=== PATIENT | female | born 1980 | race Caucasian/White ===

== ENCOUNTER 2016-12-23 10:49 | Inpatient (IN) ==
[2016-12-23] MEDS ORDERED: 0.9 % Sodium Chloride 1,000 ML IVC ONE (11:37)
[2016-12-23] MEDS ORDERED: *HR* HYDROmorphone (PF) 1 MG/ML SYRINGE IVP ONE ×2 (11:37→14:47)
[2016-12-23] MEDS ORDERED: Ondansetron ODT 4 MG TAB.RAPDIS SL ONE (11:37)
[2016-12-23 11:55] LABS: Hematocrit 40.9 % (35.3-44.9); Hemoglobin 13.7 g/dL (11.5-15.4); Mean Corpuscular HGB Conc 33.5 g/dL (31.6-35.5); Mean Corpuscular Hemoglobin 32.1 pg (28.0-33.3); Mean Corpuscular Volume 95.8 fL (83.0-100.0); Mean Platelet Volume 8.9 fL (9.4-12.4); Platelet Count 282 K/mcL (140-400); Red Blood Count 4.27 M/mcL (3.82-4.97); Red Cell Distribution Width 11.9 % (11.5-14.5)
[2016-12-23 12:10] LABS: Alanine Aminotransferase 698 Units/L (0-55); Albumin 3.7 g/dL (3.5-5.0); Albumin/Globulin Ratio 1.3 (1.1-2.2); Alkaline Phosphatase 122 Units/L (38-126); Aspartate Amino Transferase 827 Units/L (5-34); BUN/Creatinine Ratio 16 (6-26); Bilirubin,Direct 1.5 mg/dL (0.0-0.5); Bilirubin,Indirect 1.4 mg/dL (0.0-1.2); Blood Urea Nitrogen 10 mg/dL (7-20); Carbon Dioxide 27 mEq/L (19-29); Chloride 105 mEq/L (98-109); Globulin 2.9 g/dL (2.4-3.5); Glucose 75 mg/dL (70-99); Lipase 18 Units/L (8-78); Osmolality,Calculated 288 (280-300); Potassium 3.7 mEq/L (3.5-4.5); Sodium 140 mEq/L (136-145); Total Protein 6.6 g/dL (6.0-8.3); eGFR For African Americans > 60 (> 60); eGFR For Non-African Americans > 60 (> 60)
[2016-12-23 12:12] LABS: Bilirubin,Total 2.9 mg/dL (0.2-1.2)
--- NOTE | 2016-12-23 12:38 | Emergency Department Note ---
Disposition Clinical Impression: Abdominal pain Qualifiers: Abdominal location: generalized Qualified Code(s): R10.84 - Generalized abdominal pain Intractable vomiting Qualifiers: Vomiting type: unspecified Nausea presence: with nausea Qualified Code(s): R11.2 - Nausea with vomiting, unspecified Disposition: Admitted As Inpatient Condition: Fair Referrals: Fifi Gallego CNP [Primary Care Provider] - Forms: ED Satisfaction Letter Nausea/Vomiting/Diarrhea HPI - General Chief complaint: ED Nausea/Vomiting/Diarrhea Stated complaint: gall bladder removed 2 days ago, vomiting Time Seen by Provider: 12/23/16 11:33 Source: patient Limitations: no limitations Nursing Notes Reviewed: Yes Vital Signs Reviewed: Yes - History of Present Illness HPI Narrative: The patient did have a cholecystectomy 2 days ago presents today with pain which was present yesterday and is improved compared to yesterday but mostly the reason that she came is because she has vomiting and she has vomited 12 times today and intermittent. No blood in the vomit. No associated fever, confusion. No bowel movement in 4 days. No blood in the urine. She has not been able to keep down her pain medication. Her abdominal pain is sharp and constant. Social history: Smoker, no alcohol or drugs - Related Data Home Medications Medication Instructions Recorded Confirmed Ondansetron HCl [Zofran] 4 mg PO Q6H PRN 12/23/16 12/23/16 OxyCODONE/APAP 5/325 [Percocet 1 tab PO Q6HR PRN 12/23/16 12/23/16 5/325 MG] Polyethylene Glycol 3350 [MiraLAX] 17 gm PO DAILY PRN 12/23/16 12/23/16 Allergies Allergy/AdvReac Type Severity Reaction Status Date / Time No Known Allergies Allergy Verified 12/23/16 10:57 Review of Systems: Constitutional: No fever Vision: No blurred vision ENT: No rhinorrhea Respiratory: No cough Allergic: No allergies : No blood in urine GI: No blood in stool Hematologic: No bruising Dermatologic: No skin rash Musculoskeletal: No pain in the extremities Neuro: No numbness of the extremities Past Medical History - Past Medical History Medical history: Reports: no medical history Surgical history: Reports: no surgical history Psychiatric history: Reports: no psych history 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 EYES: PERRL, no scleral icterus. NOSE: The nose is normal in appearance without rhinorrhea RESP: Normal chest excursion with respiration; breath sounds clear and equal bilaterally; no wheezes, rhonchi, or rales CARD: Regular rhythm, without murmurs, rub or gallop ABD: Non-distended; surgical wounds are clean, dry, intact, no erythema or signs of infection, does not generalized pain mostly pain in the right upper quadrant which is moderate in severity, entire abdomen is soft without rigidity , rebound or guarding SKIN: Normal for age and race; warm and dry; no apparent lesions - General Limitations: no limitations General appearance: alert, in no apparent distress Course Vital Signs Temperature 98.0 F 12/23/16 10:53 Pulse Rate 68 12/23/16 10:53 Respiratory Rate 16 12/23/16 10:53 Blood Pressure 136/88 12/23/16 10:53 O2 Sat by Pulse Oximetry 99 12/23/16 10:53 Temperature 98.0 F 12/23/16 10:53 Pulse Rate 62 12/23/16 13:48 Respiratory Rate 16 12/23/16 13:48 Blood Pressure 146/76 12/23/16 13:48 O2 Sat by Pulse Oximetry 97 12/23/16 13:48 Oxygen Delivery Oxygen Delivery Room Air Nausea/Vomiting/Diarrhea - [facility] Narrative Medical decision making narrative: I did review the patient's labs and am concerned about a retained stone. We will discuss further with surgery, the patient did receive IV fluids, IV Dilaudid and Zofran 1238 - Lab Data Result diagrams: 12/23/16 11:46 12/23/16 11:46 Lab Results 12/23/16 12/23/16 Range/Units 11:46 11:46 WBC 6.6 (4.3-11.1) K/mcL RBC 4.27 (3.82-4.97) M/mcL Hgb 13.7 (11.5-15.4) g/dL Hct 40.9 (35.3-44.9) % MCV 95.8 (83.0-100.0) fL MCH 32.1 (28.0-33.3) pg MCHC 33.5 (31.6-35.5) g/dL RDW 11.9 (11.5-14.5) % Plt Count 282 (140-400) K/mcL MPV 8.9 L (9.4-12.4) fL Sodium 140 (136-145) mEq/L Potassium 3.7 (3.5-4.5) mEq/L Chloride 105 (98-109) mEq/L Carbon Dioxide 27 (19-29) mEq/L BUN 10 (7-20) mg/dL Creatinine 0.64 (0.57-1.11) mg/dL Est GFR ( Amer) > 60 (> 60) Est GFR (Non-Af Amer) > 60 (> 60) BUN/Creatinine Ratio 16 (6-26) Glucose 75 (70-99) mg/dL Calculated Osmolality 288 (280-300) Calcium 9.0 (8.6-10.8) mg/dL Total Bilirubin 2.9 H D (0.2-1.2) mg/dL Direct Bilirubin 1.5 H (0.0-0.5) mg/dL Indirect Bilirubin 1.4 H (0.0-1.2) mg/dL AST 827 H (5-34) Units/L ALT 698 H (0-55) Units/L Alkaline Phosphatase 122 (38-126) Units/L Serum Total Protein 6.6 (6.0-8.3) g/dL Albumin 3.7 (3.5-5.0) g/dL Globulin 2.9 (2.4-3.5) g/dL Albumin/Globulin Ratio 1.3 (1.1-2.2) Lipase 18 (8-78) Units/L
[2016-12-23] MEDS ORDERED: Ondansetron 4 MG/2 ML VIAL IVP ONE (15:08)
[2016-12-23] MEDS ORDERED: Naloxone 0.4 MG/ML INJ IVP PRN (15:17)
[2016-12-23] MEDS ORDERED: Ondansetron 4 MG/2 ML VIAL IVP PRN (15:17)
[2016-12-23] MEDS: 0.9 % Sodium Chloride 1,000 ML IVC SCH (15:29)
--- NOTE | 2016-12-23 15:35 | Internal Med History&Physical ---
Date of Encounter: 12/23/16 Time of Encounter: 15:30 Assessment and Plan (1) Abdominal pain Current visit: Yes Status: Acute Epigastric and right upper quadrant abdominal pain status post cholecystectomy [address] is concerning for stone and bile duct as there is possible mild intrahepatic biliary duct dilation versus mild periportal edema. Plan admitted to manage nausea, vomiting, pain and for ERCP ,Surgeon Dr. Mcmullen aware. Will have MRCP tonight results pending Consult to Dr. Jackman, GI for ERCP Nothing by mouth Dilaudid 1 mg every 4 hours PRN Qualifiers: Abdominal location: epigastric Qualified Code(s): R10.13 - Epigastric pain (2) Intractable vomiting Current visit: Yes Status: Acute With nausea which began this morning. Vomiting 12 episodes, reported 1 episode of hematemesis not vomiting at this time in the ED and she was given Zofran and reports that it has helped. Possible stone in bile duct causing intrahepatic biliary duct dilation. Continue treating nausea with antiemetics Zofran 4mg IV push every 8 hours PRN. Consult to Dr. Jackman Qualifiers: Vomiting type: unspecified Nausea presence: with nausea Qualified Code(s) : R11.2 - Nausea with vomiting, unspecified Internal Medicine - H&P: HPI Chief complaint: N/V x12 episodes today, dehydration, s/p lap pamela Admitted From: Home Plans for Post Hospital Care: Home History of present illness: Ms. Gautam is a 36 year old female with the only past medical history being surgical; tubal and pamela, presents today with nausea and vomiting x12 episodes. Reports one instance of hematemesis, and bile thorughout the rest of episodes. The patient is 2 days status post cholecystectomy and experiencing unremitting sharp epigastric and RUQ abdominal pain 08/10. Was seen in ED yesterday d/t pain and nausea and given dilaudid and sent home. Denies any fevers, chills, nightsweats, diarrhea. Admits to N/V, and constipation and reports she is not passing gas. Workup in ED revealed mild intrahepatic biliary duct dilation vs periportal edema, LFT's elevated at AST 827, ALT 698, total bili 2.9 direct bili1.5 and indirect bili 1.4. Past Med Surg Social Fam HX - Past Medical History Medical history: no medical history Psychiatric history: no psych history - Past Surgical History Surgical History: no surgical history - Social History Smoking Status: Current every day smoker Smokeless Tobacco Status: No Alcohol use: none Drug use: none Internal Medicine - H&P: Meds Ondansetron HCl [Zofran] 4 mg PO Q6H PRN 12/23/16 [History] OxyCODONE/APAP 5/325 [Percocet 5/325 MG] 1 tab PO Q6HR PRN 12/23/16 [History] Polyethylene Glycol 3350 [MiraLAX] 17 gm PO DAILY PRN 12/23/16 [History] 3 Allergy/AdvReac Type Severity Reaction Status Date / Time No Known Allergies Allergy Verified 12/23/16 10:57 All Systems PM: A 10-system review of systems was performed and is negative for pertinent findings except as documented above in the HPI. - Constitutional Constitutional: no chills, no excessive sweating, no fever(s), no night sweats - EENT Eyes: no change in vision, no discharge, no pain, no photophobia Ears: no ear discharge, no ear pain, no tinnitus Nose, mouth and throat: no dysphagia, no nasal discharge, no neck pain, no sore throat - Cardiovascular Cardiovascular ROS IM: no chest pain, no diaphoresis, no dyspnea, no lightheadedness, no palpitations, no syncope - Respiratory Respiratory: no cough, no dyspnea, no wheezing, no excessive phlegm production - Gastrointestinal Gastrointestinal: as per HPI, abdominal pain, coffee ground emesis, constipation , nausea, vomiting, no diarrhea, no hematemesis, no hematochezia, no melena - Genitourinary Genitourinary: no change in urinary stream, no dysuria, no flank pain, no hematuria - Musculoskeletal Musculoskeletal ROS IM: no numbness, no tingling - Integumentary Integumentary IM: no rash, no unusual bruising - Neurological Neurological ROS: no confusion, no convulsions, no focal weakness, no numbness, no tingling, no tremor(s) - Hematologic/Lymphatic Hematologic/Lymphatic: no easy bruising - Constitutional Vitals: Temp Pulse Resp BP Pulse Ox 98.0 F 62 16 138/78 97 12/23/16 10:53 12/23/16 15:06 12/23/16 15:06 12/23/16 15:06 12/23/16 15:06 General appearance: Present: cooperative, A&O X 3, no acute distress, answers questions appropriately - Head Head exam: Present: atraumatic, normocephalic - Eye Eye exam: Present: PERRL, conjuntiva pink, sclera anicteric Pupils: Present: PERRL - Neck Neck exam general surgery: Present: supple, trachea midline. Absent: lymphadenopathy - Respiratory Respiratory exam: Present: CTAB. Absent: accessory muscle use, rales, rhonchi, wheezes - Cardiovascular Cardiovascular exam: Present: RRR, +S1, +S2. Absent: diastolic murmur, gallop, rubs, systolic murmur - GI/Abdominal GI/Abdominal exam: Present: hypoactive bowel sounds, soft, tenderness ( epigastric and RUQ). Absent: distended, firm, hepatomegaly, rebound, rigid - Extremities Exam Extremities exam: Present: warm, radial pulses palpable and symmetrical. Absent : calf tenderness, cyanotic, pedal edema - Neurological Exam Neurological exam: Present: CN II-XII intact, oriented X3, no focal deficits. Absent: pronater drift, facial droop, speech deficit - Skin Skin exam: Present: dry, intact Additional comments: Multiple laproscopic incision noted to abdomen, intact, without drainage or signs of infection. Internal Med - H&P Results - Labs CBC & Chem 7: 12/23/16 11:46 12/23/16 11:46 - Diagnostic Studies CT scan - abdomen Status: image reviewed by me Additional comments: CT revealed mild periportal edema versus mild intrahepatic biliary duct dilation
[2016-12-23] MEDS ORDERED: *HR* HYDROmorphone (PF) 1 MG/ML SYRINGE IVP SCH (16:00)
[2016-12-23] MEDS ORDERED: *HR* HYDROmorphone (PF) 1 MG/ML SYRINGE IVP PRN (16:09)
[2016-12-23] MEDS: *HR* HYDROmorphone (PF) 1 MG/ML SYRINGE IVP PRN ×2 (19:07→22:49)
[2016-12-23] MEDS: Ondansetron 4 MG/2 ML VIAL IVP PRN (22:49)
[2016-12-24] MEDS: 0.9 % Sodium Chloride 1,000 ML IVC SCH ×2 (02:43→14:13)
[2016-12-24] MEDS: *HR* HYDROmorphone (PF) 1 MG/ML SYRINGE IVP PRN ×6 (02:43→23:43)
[2016-12-24 06:56] LABS: Basophils % 0.3 %; Eosinophils # 0.2 K/mcL (0.0-0.6); Eosinophils % 2.4 %; Hematocrit 37.1 % (35.3-44.9); Hemoglobin 12.3 g/dL (11.5-15.4); Immature Granulocytes % 0.3 % (0-4); Immature Platelets 2.5 % (1.1-6.1); Lymphocytes # 2.2 K/mcL (0.6-4.6); Lymphocytes % 30.8 %; Mean Corpuscular HGB Conc 33.2 g/dL (31.6-35.5); Mean Corpuscular Hemoglobin 31.6 pg (28.0-33.3); Mean Corpuscular Volume 95.4 fL (83.0-100.0); Mean Platelet Volume 9.6 fL (9.4-12.4); Monocytes # 0.6 K/mcL (0.0-1.3); Monocytes % 8.8 %; Neutrophils # 4.1 K/mcL (1.6-8.9); Platelet Count 287 K/mcL (140-400); Red Blood Count 3.89 M/mcL (3.82-4.97); Red Cell Distribution Width 11.7 % (11.5-14.5); Segmented Neutrophils % 57.4 %
[2016-12-24 07:12] LABS: Alanine Aminotransferase 454 Units/L (0-55); Albumin 3.4 g/dL (3.5-5.0); Albumin/Globulin Ratio 1.3 (1.1-2.2); Alkaline Phosphatase 177 Units/L (38-126); Aspartate Amino Transferase 270 Units/L (5-34); BUN/Creatinine Ratio 13 (6-26); Bilirubin,Total 2.9 mg/dL (0.2-1.2); Blood Urea Nitrogen 8 mg/dL (7-20); Calcium 8.7 mg/dL (8.6-10.8); Carbon Dioxide 25 mEq/L (19-29); Chloride 107 mEq/L (98-109); Globulin 2.6 g/dL (2.4-3.5); Glucose 61 mg/dL (70-99); Osmolality,Calculated 282 (280-300); Potassium 3.5 mEq/L (3.5-4.5); Sodium 138 mEq/L (136-145); eGFR For African Americans > 60 (> 60); eGFR For Non-African Americans > 60 (> 60)
[2016-12-24 07:15] LABS: BUN/Creatinine Ratio 13 (6-26); Blood Urea Nitrogen 8 mg/dL (7-20); Calcium 8.8 mg/dL (8.6-10.8); Carbon Dioxide 24 mEq/L (19-29); Chloride 107 mEq/L (98-109); Glucose 61 mg/dL (70-99); Osmolality,Calculated 284 (280-300); Potassium 3.5 mEq/L (3.5-4.5); Sodium 139 mEq/L (136-145); eGFR For African Americans > 60 (> 60); eGFR For Non-African Americans > 60 (> 60)
[2016-12-24] MEDS: Ondansetron 4 MG/2 ML VIAL IVP PRN ×3 (07:32→20:29)
--- NOTE | 2016-12-24 07:45 | Anesthesia Evaluation PreOp ---
Date of Encounter: 12/24/16 Time of Encounter: 07:43 - Past History Planned Operation: ERCP Cardiac History: Denies any Significant Hx Pulmonary History: Smoker, Pack/yr (1 ppd x 25 years) HEARING THERAPIST History: Denies Any Significant HX Other Medical History: Denies Any Significant HX Anesthesia History: No Prior Anesthetic Complications, Past Anesthesia (Facial sx, tubal , GB) : No Test: Negative (12/21/2016) Alcohol Use: none Drug use: none Medications and Allergies Ondansetron HCl [Zofran] 4 mg PO Q6H PRN 12/23/16 [History] OxyCODONE/APAP 5/325 [Percocet 5/325 MG] 1 tab PO Q6HR PRN 12/23/16 [History] Polyethylene Glycol 3350 [MiraLAX] 17 gm PO DAILY PRN 12/23/16 [History] 3 Allergy/AdvReac Type Severity Reaction Status Date / Time No Known Allergies Allergy Verified 12/23/16 10:57 - Meds/Allergy Pre-op Review Medications Reviewed: Yes Allergies Reviewed: Yes Beta Blockers on Current Med List: No Anesthesia Results - Labs 12/24/16 05:45 12/24/16 05:45 - Imaging EKG: image reviewed (SINUS RHYTHM POSSIBLE RIGHT VENTRICULAR CONDUCTION DELAY) Anesthesia Exam O2 Sat Height 1.6 m Height 1.6 m Weight 50.1 kg Weight 50.349 kg Weight 50.349 kg O2 Sat by Pulse Oximetry 97 O2 Sat by Pulse Oximetry 99 O2 Sat by Pulse Oximetry 97 O2 Sat by Pulse Oximetry 98 O2 Sat by Pulse Oximetry 97 O2 Sat by Pulse Oximetry 97 O2 Sat by Pulse Oximetry 96 O2 Sat by Pulse Oximetry 99 Vital Signs Temp Pulse Resp BP Pulse Ox 98.0 F 68 16 136/88 99 12/23/16 10:53 12/23/16 10:53 12/23/16 10:53 12/23/16 10:53 12/23/16 10:53 Vital Signs/O2 Sat, Most Current Temp Pulse Resp BP Pulse Ox 98.0 F 59 14 119/70 97 12/24/16 05:00 12/24/16 05:00 12/24/16 05:00 12/24/16 05:00 12/24/16 05:00 Height: 5'3'' Weight: 110# NPO (# of Hours): > 8 hrs Pain Scale: 0 Pain Scale Used: Numeric (1 - 10) - HEENT Pupil (Motor): Pupils equal, EOMI Mallampati: I Teeth: Normal Oral Opening: Greater than 3 - HEARING THERAPIST LOC: Oriented HEARING THERAPIST Motor: Normal RUE, Normal LUE, Normal RLE, Normal LLE, Normal Face HEARING THERAPIST Sensory: Normal: RUE, LUE, RLE, LLE, Face - Cardiac Rhythm: Regular Murmur: None JVD: No Carotid Bruit: No - Pulmonary Breath Sounds: bilateral Clear Respiratory Effort: Symmetrical Anesthesia Assess/Plan ASA Score: 2 Modified Esdras Scale for Level of Consciousness: Cooperative, oriented, and tranquil Anesthetic Plan: General Autologous Blood: Yes Monitoring Plan: Standard Monitors Recovery Plan: PACU
[2016-12-24] MEDS ORDERED: D5% in Water 1,000 ML IVC PRN (08:05)
[2016-12-24] MEDS ORDERED: *HR* Dextrose 50 % in Water (Syg) 50 ML SYRINGE IVP PRN (08:05)
[2016-12-24] MEDS ORDERED: Dextrose Gel 15 GM PO PRN ×2 (08:05)
[2016-12-24] MEDS ORDERED: *HR* Dextrose 50 % in Water (Syg) 50 ML SYRINGE ONE (08:12)
[2016-12-24] MEDS ORDERED: Albuterol 2.5 MG/3 ML NEBULIZER IH ONE ×2 (08:24→09:15)
[2016-12-24] MEDS ORDERED: *HR* Labetalol 20 MG/4 ML SYRINGE IVP PRN (08:24)
[2016-12-24] MEDS ORDERED: Ondansetron 4 MG/2 ML VIAL IVP ONE (08:24)
[2016-12-24] MEDS ORDERED: *HR* HYDROmorphone (PF) 1 MG/ML SYRINGE IVP PRN (08:24)
[2016-12-24] MEDS ORDERED: *HR* Promethazine 25 MG/ML VIAL IVP PRN (08:24)
[2016-12-24] MEDS ORDERED: Indomethacin 50 MG SUPP.RECT RC ONE (08:27)
[2016-12-24] MEDS ORDERED: *HR* FentaNYL (PF) 100 MCG/2 ML VIAL ONE (08:59)
[2016-12-24] MEDS ORDERED: *HR* Propofol 200 MG/20 ML VIAL IVP ONE (08:59)
[2016-12-24] MEDS ORDERED: *HR* Midazolam HCl 2 MG/2 ML VIAL ONE (08:59)
[2016-12-24] MEDS ORDERED: *HR* Rocuronium Bromide 50 MG/5 ML VIAL ONE (09:01)
[2016-12-24] MEDS ORDERED: Lidocaine -MPF 2% 2 ML VIAL ONE (09:01)
[2016-12-24] MEDS ORDERED: Dexamethasone 4 MG/ML VIAL ONE (09:01)
[2016-12-24] MEDS ORDERED: *HR* Succinylcholine 200 MG/10 ML VIAL IVP ONE (09:01)
[2016-12-24] MEDS ORDERED: Ondansetron 4 MG/2 ML VIAL ONE (09:01)
[2016-12-24] MEDS ORDERED: Ringers Solution, Lactated 1,000 ML IVC SCH (10:00)
--- NOTE | 2016-12-24 12:04 | Anesthesia Evaluation Post Op ---
Date of Encounter: 12/24/16 Time of Encounter: 12:03 - Vital Signs Vital Signs: Vital Signs/O2 Sat, Most Current Temp Pulse Resp BP Pulse Ox 97.0 F L 57 20 131/83 96 12/24/16 11:30 12/24/16 11:30 12/24/16 11:30 12/24/16 11:30 12/24/16 11:30 - Lungs Lungs: Clear Ascult./Percussion - Airway Airway: Non-obstructed - Cardiovascular Regular Rate - Mental Status Mental Status: Alert & Oriented, Answers Appropriately - Pain Pain Scale: 0 Pain Scale used: Numeric (1 - 10) - Nausea Vomiting Nausea Vomiting: Not Present - Hydration Hydration: NPO, Able to void - Discharge PostOp Status: Transfer Patient to floor
--- NOTE | 2016-12-24 14:29 | Internal Med Progress Note ---
Date of Encounter: 12/24/16 Time of Encounter: 09:20 - Assessment and plan (1) Obstructive jaundice Current Visit: Yes Status: Acute Assessment and plan: AST and ALT are improved but alkaline phosphatase elevated today. MRCP shows mild intrahepatic biliary duct dilation without any common bile duct dilation. Continue supportive care. GI consulted. Plan for upper GI endoscopy with hospital ERCP today. Pain control with intravenous narcotic medications. High- risk for complications. (2) Choledocholithiasis Current Visit: Yes Status: Suspected Assessment and plan: No clear findings of choledocholithiasis on MRI. Plan for upper GI endoscopy and possible ERCP later today. (3) Abdominal pain Current Visit: Yes Status: Acute Assessment and plan: Due to obstructive jaundice. Improving but persistent in the right upper quadrant and epigastric regions. Continue pain control with intravenous narcotic medications. Qualifiers: Abdominal location: epigastric Qualified Code(s): R10.13 - Epigastric pain - Subjective Interval history: Patient continues to have intermittent right upper quadrant pain. Pain improves when she receives intravenous narcotic medications but returns in a couple of hours. Associated with some nausea. No new episodes of emesis. No diarrhea. - Constitutional Vitals: Temp Pulse Resp BP Pulse Ox 98.4 F 66 18 116/70 97 12/24/16 14:22 12/24/16 14:22 12/24/16 14:22 12/24/16 14:22 12/24/16 14:22 General appearance: Present: cooperative, A&O X 3, no acute distress, answers questions appropriately - Neck Neck exam general surgery: Present: supple, trachea midline. Absent: lymphadenopathy - Respiratory Respiratory exam: Present: CTAB. Absent: accessory muscle use, rales, rhonchi, wheezes - Cardiovascular Cardiovascular exam: Present: RRR, +S1, +S2. Absent: diastolic murmur, gallop, rubs, systolic murmur - GI/Abdominal GI/Abdominal exam: Present: normal bowel sounds, soft, tenderness (Right upper quadrant), no peritoneal signs. Absent: distended - Extremities Exam Extremities exam: Present: warm, radial pulses palpable and symmetrical. Absent : calf tenderness, cyanotic, pedal edema - Neurological Exam Neurological exam: Present: alert, CN II-XII intact, oriented X3, no focal deficits. Absent: facial droop, speech deficit Internal Medicine: Result - Labs CBC & Chem 7: 12/24/16 05:45 12/24/16 05:45 Labs: Short CBC 12/24/16 Range/Units 05:45 WBC 7.1 (4.3-11.1) K/mcL Hgb 12.3 (11.5-15.4) g/dL Hct 37.1 (35.3-44.9) % Plt Count 287 (140-400) K/mcL Neutrophils # 4.1 (1.6-8.9) K/mcL BMP 12/24/16 12/24/16 05:45 05:45 Sodium 139 138 Potassium 3.5 3.5 Chloride 107 107 Carbon Dioxide 24 25 BUN 8 8 Creatinine 0.63 0.63 Glucose 61 L 61 L Calcium 8.8 8.7 Liver Function 12/24/16 Range/Units 05:45 Total Bilirubin 2.9 H (0.2-1.2) mg/dL AST 270 H (5-34) Units/L ALT 454 H (0-55) Units/L Alkaline Phosphatase 177 H (38-126) Units/L Albumin 3.4 L (3.5-5.0) g/dL - Impressions Impressions Cath/Invasive Procedure 12/24/16 10:15 IMPRESSION: Please refer to the procedure report for further details. D/ / 12/24/2016 13:18:33 Juan J Winkler MD / jenn Interpreting Provider: Juan J Winkler MD Consult Discharge Plan - Plan Referrals: Fifi Gallego CNP [Primary Care Provider] -
[2016-12-24] MEDS ORDERED: Nicotine 14 MG PATCH.TD24 TD SCH (18:30)
[2016-12-24] MEDS ORDERED: Sennosides/Docusate Sodium TABLET PO PRN (23:16)
[2016-12-25] MEDS: Ondansetron 4 MG/2 ML VIAL IVP PRN (03:18)
[2016-12-25] MEDS: *HR* HYDROmorphone (PF) 1 MG/ML SYRINGE IVP PRN ×2 (03:18→08:06)
[2016-12-25] MEDS ORDERED: GI Cocktail 40 ML EACH PO ONE (08:22)
[2016-12-25] MEDS ORDERED: *HR* OxyCODONE Immed Rel 5 MG TABLET PO PRN (08:23)
[2016-12-25] MEDS ORDERED: *HR* HYDROmorphone (PF) 1 MG/ML SYRINGE IVP PRN (08:24)
[2016-12-25 08:29] LABS: Basophils % 0.2 %; Eosinophils # 0.2 K/mcL (0.0-0.6); Eosinophils % 2.3 %; Hematocrit 36.7 % (35.3-44.9); Hemoglobin 12.7 g/dL (11.5-15.4); Immature Granulocytes % 0.3 % (0-4); Lymphocytes % 33.3 %; Mean Corpuscular HGB Conc 34.6 g/dL (31.6-35.5); Mean Corpuscular Hemoglobin 32.6 pg (28.0-33.3); Mean Corpuscular Volume 94.3 fL (83.0-100.0); Mean Platelet Volume 9.6 fL (9.4-12.4); Monocytes # 0.7 K/mcL (0.0-1.3); Monocytes % 8.3 %; Platelet Count 312 K/mcL (140-400); Red Blood Count 3.89 M/mcL (3.82-4.97); Red Cell Distribution Width 11.7 % (11.5-14.5); Segmented Neutrophils % 55.6 %
[2016-12-25 08:39] LABS: Albumin 3.6 g/dL (3.5-5.0); Albumin/Globulin Ratio 1.2 (1.1-2.2); Bilirubin,Direct 0.9 mg/dL (0.0-0.5); Bilirubin,Indirect 1.7 mg/dL (0.0-1.2); Bilirubin,Total 2.6 mg/dL (0.2-1.2); Total Protein 6.6 g/dL (6.0-8.3)
[2016-12-25 11:35] VITALS: BP 151/88
--- NOTE | 2016-12-25 12:33 | Discharge Summary ---
Date of Encounter: 12/25/16 Time of Encounter: 12:30 - Discharge Diagnosis (1) Obstructive jaundice Priority: Primary Status: Acute (2) Choledocholithiasis Priority: Secondary Status: Suspected (3) Abdominal pain Priority: Secondary Status: Acute Qualifiers: Abdominal location: epigastric Qualified Code(s): R10.13 - Epigastric pain (4) Duodenal ulcer Priority: Secondary Status: Acute - Discharge Medications Prescriptions: OxyCODONE/APAP 5/325 [Percocet 5/325 MG] 1 tab PO Q6HR PRN #14 tablet PRN Reason: Pain Omeprazole [PriLOSEC] 40 mg PO DAILY #30 cap Home Medications: Ondansetron HCl [Zofran] 4 mg PO Q6H PRN 12/23/16 [History] Polyethylene Glycol 3350 [MiraLAX] 17 gm PO DAILY PRN 12/23/16 [History] Omeprazole [PriLOSEC] 40 mg PO DAILY #30 cap 12/25/16 [Rx] OxyCODONE/APAP 5/325 [Percocet 5/325 MG] 1 tab PO Q6HR PRN #14 tablet 12/25/16 [ Rx] Allergies/Adverse Reactions: 3 Allergy/AdvReac Type Severity Reaction Status Date / Time No Known Allergies Allergy Verified 12/23/16 10:57 Date of admission: 12/23/16 15:17 Primary care physician: Fifi Gallego CNP Consults: 12/23/16 14:05 Consult to Gastroenterology [CONS] Routine Consulting Provider: Gastroenterology Denise Reason for Consult: retained stone s/p choly Call Completed: No Discharging clinician: Garrett Guzman Anticipated date of discharge: 12/25/16 - Patient Status Disposition: Home, Self-Care Condition: Good Functional capacity at discharge: independent ambulation Overall status at discharge: patient is progressing back to baseline - Discharge Instructions Follow Up With: Fifi Gallego CNP [Primary Care Provider] - (in 1 week) Ara Jackman MD [Partnered Physician] - (in 2-3 weeks for follow up) - Diet and Activity Activity: increase activity as tolerated Diet: low fat, low cholesterol, low salt diet Hospital course: Ms. Gautam is a 36 year old female patient who recently underwent laparoscopic cholecystectomy presented to the ER with intractable abdominal pain. He was diagnosed with acute obstructive jaundice with concern for possible bile leak versus choledocholithiasis. Gastroenterology was consulted and they proceeded with ERCP yesterday. This showed the presence of duodenal ulcers which were nonbleeding. The patient underwent biliary sphincterotomy with temporary stent placement into the common bile duct. Postprocedure, her symptoms initially improved but had gotten worse once she started taking oral diet. This morning she was treated with GI cocktail with much improvement in her symptoms. She has been placed on PPI which she can continue to take for her duodenal ulcers. She is clinically stable for discharge home as she is tolerating oral diet better today. She will follow up with GI for further management and repeat of EGD in 6-8 weeks. - Time Spent with Patient Total time spent providing and/or coordinating discharge services: Greater than 30 minutes (35 min) - Constitutional Vitals: Temp Pulse Resp BP Pulse Ox 98.3 F 63 16 151/88 98 12/25/16 11:34 12/25/16 11:34 12/25/16 11:34 12/25/16 11:34 12/25/16 11:34 General appearance: Present: cooperative, A&O X 3, no acute distress, answers questions appropriately - Neck Neck exam general surgery: Present: supple, trachea midline. Absent: lymphadenopathy - Respiratory Respiratory exam: Present: CTAB. Absent: accessory muscle use, rales, rhonchi, wheezes - Cardiovascular Cardiovascular exam: Present: RRR, +S1, +S2. Absent: diastolic murmur, gallop, rubs, systolic murmur - GI/Abdominal GI/Abdominal exam: Present: normal bowel sounds, soft, tenderness (epigastric), no peritoneal signs. Absent: distended - Extremities Exam Extremities exam: Present: warm, radial pulses palpable and symmetrical. Absent : calf tenderness, cyanotic, pedal edema - Neurological Exam Neurological exam: Present: alert, CN II-XII intact, oriented X3, no focal deficits. Absent: facial droop, speech deficit
== END 2016-12-25 13:15 | disposition home or self-care (01) ==
LOC: 3ANU 10:49 → EMEROO 10:49 → 3ANU 16:17
PROVIDERS: ADMIT Family Medicine; ATTEND Internal Medicine